=== PATIENT | male | born 1945 | race Asian ===

== ENCOUNTER → 2016-06-09 | Outpatient (CLI) | payer MEDICARE, MEDICAID ==
--- NOTE | 2016-06-09 12:01 | Diagnostic Imaging Report ---
Clinical Indication: SOB Technique: Spiral acquisitions obtained through the chest. No IV contrast utilized, reason not stated. Multiplanar reconstructions generated. Total dose length product 753 mGycm. CTDIvol(s) 21 mGy Comparison: None Findings:Irregular density measuring 5 mm long axis dimension is seen in the posterior right lung base, image 36 of series 4. Atelectatic changes are seen at both lung bases. Lungs and pleural spaces are otherwise clear. The ascending thoracic aorta is ectatic although not quite aneurysmal, measuring 4.3 cm long axis dimension. The descending thoracic aorta is also diffusely mildly ectatic. The heart is upper limits of normal in size. There is anterior wall pericardial thickening versus fluid. There are coronary artery calcifications. No mediastinal or hilar mass or adenopathy. The included portions of the thyroid are unremarkable. No axillary or supraclavicular chest wall mass or adenopathy. Limited views of the upper abdomen demonstrates evidence of prior cholecystectomy. Numerous calcifications are seen within the liver. There are degenerative changes of the thoracic spine. Impression: 5 mm irregular opacity in the right lower lobe if there is significant smoking history or other risk factors for lung carcinoma, short of all of at 6 months to one year is recommended. There are no significant risk factors, no further followup is necessary Minimal basilar atelectatic changes, otherwise clear lungs. Ectatic but not frankly aneurysmal ascending thoracic aorta. Anterior wall pericardial thickening versus fluid Coronary artery calcifications graft evidence of prior cholecystectomy Granulomatous calcifications within the liver Degenerative spondylosis The CT scanner at [facility] is accredited by the [employer] and the scans are performed using protocols designed to limit radiation exposure to as low as reasonably achievable to attain images of sufficient resolution adequate for diagnostic evaluation.
== END | disposition home or self-care (01) ==
LOC: CAT 08:30
DX: R06.02 Shortness of breath (principal); Z90.49 Acquired absence of other specified parts of digestive tract; M47.9 Spondylosis, unspecified; I77.810 Thoracic aortic ectasia
CPT/HCPCS: 71250